=== PATIENT | female | born 1945 | race Caucasian/White ===

== ENCOUNTER 2016-06-05 09:26 | Day surgery (SDC) | payer MEDICARE, BC ==
[~2016-06-05 09:26] MED LIST: ADULT LOW DOSE81 M1 PO; ADULT LOW DOSE81 MG; ALAVERT10 MG; ALDACTONE25 M1 PO; CIPRO500 M1 PO; COMBIVENT INH; COMBIVENT INH14.7 GM; COREG25 M1 PO; COREG25 MG; COREG6.25 MG PO; COZAAR50 MG; CRESTOR40 MG; CRESTOR40 MG PO; DIFLUCAN PO; DIGITEK125 MCG; ENTRESTO 24 MG1 EACH; EQL FISH OIL 1,1 CA1; EQL FISH OIL 1,1 CA1 PO; K-DUR20 ME2 PO; LASIX40 M1 PO; LEVAQUIN PO; LEVAQUIN500 MG PO; LEVAQUIN750 MG PO; LEVOTHROID125 MCG PO; LEVOTHYROXINE150 MCG; LEVOXYL137 MCG; LEVOXYL150 MCG; LEVOXYL75 MCG; LIPITOR40 M1 PO; NAPROSYN500 M1 PO; PEPCID20 M1 PO; SYNTHROID75 MC1 PO; TEMAZEPAM15 MG; TYLENOL PM EX-S1 TAB; VALTREX; VITAMIN B-121000 MC1 PO; VITAMIN B121000 MCG; VITAMIN B6200 MG; VITAMIN D31000 UNI3 PO; WARFARIN; WATER PILL; XANAX; XANAX0.5 M1 PO; XANAX0.5 MG; ZOLOFT100 M1 PO; [UNRECOGNIZED DRUG - OTHER]; [UNRECOGNIZED DRUG - OTHER] PO
[2016-06-05 10:23] LABS: ANION GAP 9 mmol/L (0-20); BLOOD UREA NITROGEN 22 mg/dl (6-24); CALCIUM 8.8 mg/dl (8.5-10.5); CARBON DIOXIDE-VENOUS 28 mmol/L (22-32); CHLORIDE 108 mmol/l (96-110); GLUCOSE 128 mg/dL (70-110); POTASSIUM 3.9 mmol/L (3.7-5.1); SODIUM 141 mmol/L (135-145); eGFR VALUE FOR BLACK 76 mL/Min
== END 2016-06-05 13:15 ==
LOC: SRG 09:26 → SHSC 09:28 → ORE 11:31 → SHSC 12:25
PROVIDERS: Anesthesiology
PROC: 01N50ZZ Release Median Nerve, Open Approach (ICD-10-PCS; principal; 2016-06-05)
PROC: 01N40ZZ Release Ulnar Nerve, Open Approach (ICD-10-PCS; 2016-06-05)
DX: G56.02 Carpal tunnel syndrome, left upper limb (principal); G56.22 Lesion of ulnar nerve, left upper limb; I25.10 Atherosclerotic heart disease of native coronary artery without angina pectoris; I11.0 Hypertensive heart disease with heart failure; I50.9 Heart failure, unspecified; M15.9 Polyosteoarthritis, unspecified; F41.1 Generalized anxiety disorder; K21.9 Gastro-esophageal reflux disease without esophagitis; I27.2 Other secondary pulmonary hypertension; Z87.891 Personal history of nicotine dependence; Z88.1 Allergy status to other antibiotic agents; Z88.5 Allergy status to narcotic agent; Z88.8 Allergy status to other drugs, medicaments and biological substances; Z79.82 Long term (current) use of aspirin; Z79.899 Other long term (current) drug therapy; Z90.13 Acquired absence of bilateral breasts and nipples; Z98.890 Other specified postprocedural states
CPT/HCPCS: J0690; J2250